=== PATIENT | female | born 1990 | race Caucasian/White ===

== ENCOUNTER 2016-09-14 15:45 | Observation (INO) | payer OTHER ==
[~2016-09-14] VITALS: Ht 170.2 cm; Wt 76.7 kg
[2016-09-14 16:06] VITALS: BP 99/54
[2016-09-14] MEDS ORDERED: PREN-546 PO (16:37)
== END 2016-09-14 19:30 | disposition home or self-care (01) ==
LOC: MLD 15:45
PROVIDERS: ADMIT Obstetrics & Gynecology; ATTEND Obstetrics & Gynecology
DX: O26.892 Other specified pregnancy related conditions, second trimester (principal); R10.9 Unspecified abdominal pain; Z3A.22 22 weeks gestation of pregnancy
CPT/HCPCS: 76805; 81000; G0378; Q0092

== ENCOUNTER 2016-10-01 11:10 | Observation (INO) | payer OTHER ==
[~2016-10-01] VITALS: Ht 170.2 cm; Wt 73.9 kg
[~2016-10-01 11:10] MED LIST: PREN-546 PO
[2016-10-01 11:50] VITALS: BP 95/53
== END 2016-10-01 14:40 | disposition home or self-care (01) ==
LOC: MLD 11:10
PROVIDERS: ADMIT Obstetrics & Gynecology; ATTEND Obstetrics & Gynecology
DX: O47.02 False labor before 37 completed weeks of gestation, second trimester (principal); Z3A.25 25 weeks gestation of pregnancy
CPT/HCPCS: 76805; G0378; Q0092